=== PATIENT | female | born 1945 | race Caucasian/White ===

== ENCOUNTER → 2017-10-18 | Outpatient (CLI) | payer MEDICARE ==
--- NOTE | 2017-10-18 16:48 | Diagnostic Imaging Report ---
PROCEDURE:X-RAY COMPLETE SKULL, FOUR OR MORE VIEWS COMPARISON:None. INDICATIONS:FALL, STATUS POST HEAD INJURY FINDINGS: BONES: Normal mineralization. Transverse fracture of the left calvarium. This is best seen on the frontal view. This is not well-seen on other views. Joint spaces are within normal limits. SOFT TISSUES:Negative. OTHER:Negative. CONCLUSION: Transverse fracture of the left calvarium. This is best seen on frontal view. Dictated by: Vito Lewis M.D. on 10/18/2017 at 16:49 Electronically approved by: Vito Lewis M.D. on 10/18/2017 at 16:49
== END ==
LOC: RAD 15:50
PROVIDERS: ATTEND Family Medicine
DX: S09.90XA Unspecified injury of head, initial encounter (principal)
CPT/HCPCS: 70260